=== PATIENT | female | born 1970 | race Caucasian/White ===

== ENCOUNTER → 2017-02-05 | Outpatient (CLI) | payer OTHER ==
[~2017-02-05] MED LIST: AMOXICILLIN500 MG PO; LASIX20 MG PO; NEURONTIN300 MG PO; SUBOXONE 8 MG-21 TA2 SL; SUBOXONE 8 MG-21 TA3 SL
== END | disposition home or self-care (01) ==
LOC: RAD 17:32
DX: M17.12 Unilateral primary osteoarthritis, left knee (principal); M25.462 Effusion, left knee